=== PATIENT | female | born 1975 | race Caucasian/White ===

== ENCOUNTER 2020-04-04 10:49 | Inpatient (IN) | payer BC ==
[2020-04-04 13:09] VITALS: BMI 28.3
[2020-04-04] MEDS ORDERED: Senokot S 8.6-50 MG TAB PO PRN (15:24)
[2020-04-04] MEDS ORDERED: Acetaminophen 325 MG TAB PO PRN (15:24)
[2020-04-04] MEDS ORDERED: Ondansetron PF 4 MG/2 ML Vial IVP PRN (15:24)
[2020-04-04] MEDS ORDERED: Bisacodyl 5 MG TAB PO PRN (15:24)
--- NOTE | 2020-04-04 15:29 | PDOC.HHP ---
Hospitalist HPI - History of Present Illness left lung pain History of Present Illness: This is a 44 year old female with past medical history of prolactinoma, anxiety , hormonal imbalance, allergies who presented to the ER with left sided lung pain. The patient states that on Sunday night she had some heartburn and took some pepcid that night. She then began having a cough all night. Initially it was brown in color but then became more dry. When she woke up Sunday morning, her left side of her chest was hurting extensively and felt like a throbbing sensation. It would occasionally radiate to the other side, but no radiation to the jaw or arm. Her pain is worst with taking a deep breath. She denies shortness of breath on exertion. She has had pneumonia a few times in the past. She denied fever, chills, runny nose, sore throat. She denies sick contacts or recent travel history. ED Course: The patient had presented to a [facility] ER for initial evaluation. She was found to be have a BP of 98/56, temp 97.7, HR 70, oxygen saturation 97% on room air. Labs showed WBC of 8.3, platelet count 145, normal d-dimer. Potassium was 2.4. She was given IV fluids with improvement in her BP to 98/57. She was also given potassium supplementation 20 meq. COVID swab was sent which was pending Hospitalist ROS - Review of Systems Constitutional: denies: fever, chills ENT: denies: ear pain, ear discharge Respiratory: denies: cough, dry, shortness of breath Cardiovascular: reports: other (pleuritic chest pain) Gastrointestinal: denies: other Genitourinary: denies: dysuria, frequency, incontinence Musculoskeletal: denies: neck pain, shoulder pain Hospitalist History - Past Medical History Other Medical History: Anxiety - Past Surgical History Other Surgical History: Bariatric surgery Breast surgery Knee surgery - Family History Other Family History: No family history of pneumonia - Social History Smoking Status: Never smoker Alcohol: reports: Occassional Drugs: reports: none Living Situation: With Family - Exam General Appearance: NAD, awake alert Eye: PERRL, anicteric sclera ENT: normocephalic atraumatic, no oropharyngeal lesions Neck: supple, no JVD Heart: RRR, no murmur, no gallops, no rubs Respiratory - other findings: diminished breath sounds diffusely. Points to pain on right side of lung Gastrointestinal: soft, non-tender, non-distended, normal bowel sounds Extremities: no cyanosis, no clubbing, no edema Skin: normal turgor, no lesions, no rashes Neurological: cranial nerve grossly intact, normal sensation to touch, no focal deficits, no new deficit Musculoskeletal: normal tone, normal strength, no muscle wasting Psychiatric: normal affect, normal behavior, A&O x 3, oriented to person Hospitalist H&P A/P - Plan Plan: CTA chest: RML consolidation, infiltrate RUL and RLL This is a 44 year old female with anxiety, prolactinoma, presenting with possible pneumonia Community acquired pneumonia - was given levaquin and clindamycin at outside hospital - will give ceftriaxone today and order azithromycin for tomorrow. Check blood culture - check sputum culture - toradol prn for pain Thrombocytopenia - platelet count 145 , will recheck Anemia - noted to be 12 at ER, will recheck Prolactinoma - continue cabergoline Hypothyroidism - continue levothyroxine Chronic headaches - topamax DVT prophylaxis: Code status: full code
[2020-04-04] MEDS ORDERED: CABERGOLINE PO SCH (15:30)
[2020-04-04] MEDS: cefTRIAXone\\ROCEPHIN 1 GM in Sodium Chloride 0.9% 100 ML IVPB SCH (16:16)
[2020-04-04] MEDS: Ketorolac Tromethamine 30 MG/ML VIAL IVP PRN ×2 (16:17→21:51)
[2020-04-04 16:54] LABS: #Eosinphils 0.1 thou/uL (0.0-0.7); #Lymphocytes 1.1 thou/uL (1.20-3.40); #Monocytes 0.4 thou/uL (0.11-0.59); #Neutrophils 5.6 thou/uL (1.40-6.50); %Basophils 0.4 % (0.0-1.0); %Eosinophils 1.7 % (0.0-10.0); %Lymphocytes 15.1 % (21.0-51.0); %Monocytes 5.7 % (0.0-10.0); %Neutrophils 77.1 % (42.0-75.0); Hemoglobin 10.1 g/dL (12.0-16.0); Mean Corpuscular HGB CONC 33.9 g/dL (32.0-36.0); Mean Corpuscular Hemoglobin 32.6 pg (27.0-31.0); Mean Corpuscular Volume 96.2 fL (78.0-98.0); Mean Platelet Volume 8.6 fL (7.4-10.4); Platelet Count 128 thou/uL (130-400); RBC Distribution Width 11.6 % (11.5-14.5); White Blood Cell (WBC) Count 7.3 thou/uL (4.8-10.8)
[2020-04-04 17:13] LABS: ALT (SGPT) 10 U/L (8-55); AST (SGOT) 10 U/L (5-34); Albumin 3.1 g/dL (3.5-5.0); Alkaline Phosphatase 55 U/L (40-110); Anion Gap 9 mmol/L (10-20); BUN (Urea Nitrogen) 9 mg/dL (7.0-18.7); Bilirubin, Total 0.3 mg/dL (0.2-1.2); Calc. Creatinine Clearance 104 mL/min (70-130); Calcium 7.4 mg/dL (7.8-10.44); Carbon Dioxide 21 mmol/L (22-29); Chloride 112 mmol/L (98-107); Estimated GFR-MDRD 78; Globulin 2.2 g/dL (2.4-3.5); Glucose 128 mg/dL (70-105); Protein, Total 5.3 g/dL (6.0-8.3); Sodium 139 mmol/L (136-145)
[2020-04-04 17:15] LABS: Potassium 2.7 mmol/L (3.5-5.1)
--- NOTE | 2020-04-04 17:23 | RAD ---
CHEST ONE VIEW: History: Pleuritic chest pain. Comparison: None. FINDINGS: There is a right middle and right lower lobe airspace opacity. No pneumothorax. Left lung is clear. N o acute osseous abnormality. Cardiac silhouette and mediastinal contours are within normal limits. IMPRESSION: Findings of right middle and lower lobe pneumonia. Follow up after treatment recommended. POS: HOME
[2020-04-04] MEDS ORDERED: Potassium Chloride 20 MEQ TAB PO SCH (17:30)
[2020-04-04] MEDS: Atenolol 50 MG TAB PO SCH ×2 (20:24→21:03)
[2020-04-04] MEDS: Diazepam 5 MG TAB PO SCH (20:24)
[2020-04-04] MEDS: Famotidine/PF 20 mg/2ml Vial SLOW IVP SCH (20:24)
[2020-04-04] MEDS: Topiramate 100 MG TAB PO SCH (20:25)
[2020-04-04] MEDS: Progesterone,Micronized 100 MG CAP PO SCH (20:25)
[2020-04-04 22:09] LABS: Potassium 3.6 mmol/L (3.5-5.1)
[2020-04-04] MEDS ORDERED: traZODone HCl 50 MG TAB PO SCH (23:00)
[2020-04-05 05:15] LABS: Iron 25 ug/dL (50-170); Iron Binding Capacity, Total 249 mcg/dL (265-497)
[2020-04-05 05:16] LABS: Anion Gap 11 mmol/L (10-20); BUN (Urea Nitrogen) 6 mg/dL (7.0-18.7); Calc. Creatinine Clearance 108 mL/min (70-130); Carbon Dioxide 17 mmol/L (22-29); Chloride 114 mmol/L (98-107); Estimated GFR-MDRD 82; Glucose 104 mg/dL (70-105); Iron Binding Capacity, Total 246 mcg/dL (265-497); Potassium 3.4 mmol/L (3.5-5.1); Sodium 139 mmol/L (136-145); Transferrin, Serum 197 mg/dL (180-382)
[2020-04-05] MEDS: Azithromycin 500 MG in Sodium Chloride 0.9% 250 ML 250 ML IVPB SCH (05:28)
[2020-04-05] MEDS: Ketorolac Tromethamine 30 MG/ML VIAL IVP PRN ×3 (05:28→21:27)
[2020-04-05] MEDS: Levothyroxine Sodium 100 MCG TAB PO SCH (05:28)
[2020-04-05 05:41] LABS: Ferritin 188.86 ng/mL (10-291)
[2020-04-05 06:12] LABS: #Eosinphils 0.2 thou/uL (0.0-0.7); #Lymphocytes 1.2 thou/uL (1.20-3.40); #Monocytes 0.4 thou/uL (0.11-0.59); #Neutrophils 4.3 thou/uL (1.40-6.50); %Basophils 0.3 % (0.0-1.0); %Eosinophils 2.9 % (0.0-10.0); %Monocytes 6.8 % (0.0-10.0); Hemoglobin 9.6 g/dL (12.0-16.0); Mean Corpuscular Hemoglobin 32.5 pg (27.0-31.0); Mean Corpuscular Volume 95.6 fL (78.0-98.0); Mean Platelet Volume 8.4 fL (7.4-10.4); Platelet Count 139 thou/uL (130-400); RBC Distribution Width 11.3 % (11.5-14.5); Red Blood Cell (RBC) Count 2.94 mill/uL (4.20-5.40); White Blood Cell (WBC) Count 6.1 thou/uL (4.8-10.8)
[2020-04-05] MEDS: Enoxaparin Sodium 40 MG/0.4 ML SYRINGE SC SCH (09:24)
[2020-04-05] MEDS: Venlafaxine HCl XR 150 MG CAP PO SCH (09:24)
[2020-04-05] MEDS: Famotidine/PF 20 mg/2ml Vial SLOW IVP SCH ×2 (09:24→21:30)
[2020-04-05] MEDS: Montelukast Sodium 10 mg Tablet PO SCH (09:24)
[2020-04-05] MEDS: Atenolol 50 MG TAB PO SCH ×2 (10:56→21:30)
[2020-04-05] MEDS ORDERED: Lidocaine 5% Patch TD SCH (12:30)
[2020-04-05] MEDS: cefTRIAXone\\ROCEPHIN 1 GM in Sodium Chloride 0.9% 100 ML IVPB SCH (15:24)
[2020-04-05 16:52] LABS: SARS-CoV-2 MS2 Positive; SARS-CoV-2 N Gene Negative; SARS-CoV-2 S Gene Negative; SARS-CoV-2 orf1ab Negative
[2020-04-05] MEDS: Sodium Chloride 0.9% 1,000 ML IV SCH ×2 (17:25→21:27)
--- NOTE | 2020-04-05 18:42 | PDOC.HOSPP ---
- Subjective Encounter Date: 04/05/20 Encounter Time: 16:00 Subjective: The patient reports 50% improvement in her pain. She has no chest congestion, mild cough. She still says she feels weak however. BP was noted to be 88 systolic this afternoon - Objective Vital Signs & Weight: Vital Signs (12 hours) Temp Pulse Resp BP Pulse Ox 04/05/20 15:20 98.4 F 75 18 84/47 L 97 04/05/20 13:05 98.4 F 69 18 91/51 L 98 04/05/20 10:56 69 04/05/20 10:37 90/55 L 04/05/20 09:35 98.9 F 69 18 87/47 L 97 04/05/20 09:30 97 Weight Admit Weight 160 lb Weight 160 lb I&O: 04/04/20 04/05/20 04/06/20 06:59 06:59 06:59 Intake Total 500 Output Total 800 Balance -300 Result Diagrams: 04/05/20 05:56 04/05/20 04:40 Hospitalist ROS - Review of Systems Constitutional: denies: fever, chills - Medication Medications: Active Medications Generic Name Dose Route Start Last Admin Trade Name Freq PRN Reason Stop Dose Admin Atenolol 50 mg 04/04/20 21:00 04/05/20 10:56 Tenormin PO Not Given BID TIANA Diazepam 20 mg 04/04/20 21:00 04/04/20 20:24 Valium PO 20 mg HS TIANA Administration Enoxaparin Sodium 40 mg 04/05/20 09:00 04/05/20 09:24 Lovenox SC 40 mg 0900 TIANA Administration Famotidine 20 mg 04/04/20 21:00 04/05/20 09:24 Pepcid SLOW IVP 20 mg Q12HR TIANA Administration Ceftriaxone Sodium 1 gm/ 100 mls @ 200 mls/hr 04/04/20 16:00 04/05/20 15:24 Sodium Chloride IVPB 100 mls 1600 TIANA Administration Azithromycin 500 mg/ Sodium 250 mls @ 250 mls/hr 04/05/20 06:00 04/05/20 05: 28 Chloride IVPB 250 mls Q24HR TIANA Administration Sodium Chloride 1,000 mls @ 75 mls/hr 04/05/20 16:30 04/05/20 17:25 Normal Saline 0.9% IV 1,000 mls .[id number] TIANA Administration Ketorolac Tromethamine 30 mg 04/04/20 15:26 04/05/20 15:24 Toradol IVP 04/09/20 15:27 30 mg Q6H PRN Administration Pain Levothyroxine Sodium 100 mcg 04/05/20 06:00 04/05/20 05:28 Synthroid PO 100 mcg 0600 TIANA Administration Lidocaine 1 patch 04/05/20 12:30 04/05/20 13:04 Lidoderm 5% Patch TD 04/05/20 21:00 1 patch NOW TIANA Administration Montelukast Sodium 10 mg 04/05/20 09:00 04/05/20 09:24 Singulair PO 10 mg DAILY TIANA Administration Progesterone 200 mg 04/04/20 21:00 04/04/20 20:25 Prometrium PO 200 mg HS TIANA Administration Topiramate 100 mg 04/04/20 21:00 04/04/20 20:25 Topamax PO 100 mg HS TIANA Administration Venlafaxine HCl 150 mg 04/05/20 09:00 04/05/20 09:24 Effexor Xr PO 150 mg DAILY TIANA Administration - Exam General Appearance: NAD, awake alert Eye: PERRL, anicteric sclera ENT: normocephalic atraumatic, no oropharyngeal lesions Neck: no JVD Heart: RRR, no murmur, no gallops, no rubs Respiratory - other findings: mild rales right side Gastrointestinal: soft, non-tender, non-distended, normal bowel sounds Extremities: no cyanosis, no clubbing, no edema Skin: normal turgor, no lesions, no rashes Hosp A/P - Plan This is a 44 year old female with anxiety, prolactinoma, presenting with possible pneumonia Community acquired pneumonia - was given levaquin and clindamycin at outside hospital - continue ceftriaxone and azithromycin - blood cultures negative - check sputum culture - continue toradol prn for pain - continue physical therapy Mild hypotension - will start IV fluids Thrombocytopenia - resolved Anemia -stable Hyperprolactinemia - continue cabergoline Hypothyroidism - continue levothyroxine Chronic headaches - topamax
[2020-04-05] MEDS ORDERED: traZODone HCl 50 MG TAB PO SCH (21:00)
[2020-04-05] MEDS: Topiramate 100 MG TAB PO SCH (21:28)
[2020-04-05] MEDS: Diazepam 5 MG TAB PO SCH (21:28)
[2020-04-05] MEDS: Progesterone,Micronized 100 MG CAP PO SCH ×2 (21:29→22:15)
[2020-04-05] MEDS: Lidocaine Patch Removal 1 EACH TOP SCH ×2 (21:29→22:16)
[2020-04-06] MEDS: Ketorolac Tromethamine 30 MG/ML VIAL IVP PRN (04:42)
[2020-04-06 05:02] LABS: Hemoglobin 9.3 g/dL (12.0-16.0); Mean Corpuscular HGB CONC 33.8 g/dL (32.0-36.0); Mean Corpuscular Hemoglobin 32.8 pg (27.0-31.0); Mean Corpuscular Volume 97.1 fL (78.0-98.0); Mean Platelet Volume 8.5 fL (7.4-10.4); Platelet Count 127 thou/uL (130-400); RBC Distribution Width 11.4 % (11.5-14.5); Red Blood Cell (RBC) Count 2.84 mill/uL (4.20-5.40); White Blood Cell (WBC) Count 4.3 thou/uL (4.8-10.8)
[2020-04-06 05:21] LABS: Anion Gap 8 mmol/L (10-20); BUN (Urea Nitrogen) 5 mg/dL (7.0-18.7); Calc. Creatinine Clearance 119 mL/min (70-130); Calcium 7.9 mg/dL (7.8-10.44); Carbon Dioxide 21 mmol/L (22-29); Chloride 113 mmol/L (98-107); Estimated GFR-MDRD Greater than 90; Glucose 91 mg/dL (70-105); Potassium 3.4 mmol/L (3.5-5.1); Sodium 139 mmol/L (136-145)
[2020-04-06] MEDS: Azithromycin 500 MG in Sodium Chloride 0.9% 250 ML 250 ML IVPB SCH (06:38)
[2020-04-06] MEDS: Levothyroxine Sodium 100 MCG TAB PO SCH (06:38)
[2020-04-06 08:22] VITALS: BP 101/61; TEMP 98.4
[2020-04-06] MEDS ORDERED: Lidocaine 5% Patch TD SCH (09:00)
[2020-04-06] MEDS ORDERED: Potassium Chloride 20 MEQ TAB PO SCH (09:30)
[2020-04-06] MEDS: Enoxaparin Sodium 40 MG/0.4 ML SYRINGE SC SCH (09:31)
[2020-04-06] MEDS: Montelukast Sodium 10 mg Tablet PO SCH (09:32)
[2020-04-06] MEDS: Venlafaxine HCl XR 150 MG CAP PO SCH (09:32)
[2020-04-06] MEDS: Famotidine/PF 20 mg/2ml Vial SLOW IVP SCH (09:33)
[2020-04-06] MEDS: Atenolol 50 MG TAB PO SCH (09:33)
[2020-04-06] MEDS ORDERED: Diazepam 5 MG TAB PO SCH (10:15)
[2020-04-06] MEDS ORDERED: Cefdinir 300 MG CAP PO SCH (10:15)
--- NOTE | 2020-04-07 01:43 | DIS ---
DATE OF ADMISSION: 04/04/2020 DATE OF DISCHARGE: 04/06/2020 DISCHARGE DIAGNOSES: 1. Right community-acquired pneumonia. 2. Mild hypotension and generalized malaise. 3. Thrombocytopenia. 4. Anemia. 5. Leukopenia. 6. Hypokalemia. BRIEF HISTORY OF PRESENT ILLNESS: This is a 44-year-old female with a past medical history of hyperprolactinemia, ADD, anxiety, hypothyroidism, chronic headaches, who presented to the emergency room with right-sided chest pain that started two days prior to admission. The patient reported that her pain was worse with taking deep breath. She denied any fevers, chills, runny nose or sore throat. She went to [facility] and was found to have a blood pressure of 98/56. Her vitals were all unremarkable. She did have a low platelet count of 145, potassium of 2.4. She had COVID swab testing and was sent to our hospital for further evaluation. The patient did have a CTA done of her chest at outside hospital, which showed a right middle lobe consolidation and infiltrate in the right upper lobe and right lower lobe. However, no signs of pulmonary embolism. HOSPITAL COURSE: Community-acquired pneumonia/Generalized malaise/hypotension: The patient was given Levaquin and clindamycin at the outside hospital. The patient had still reported 7/10 pain upon arrival to our hospital, so her antibiotics were switched to ceftriaxone and azithromycin. Sputum culture was inadequate and indicated saliva culture. Blood cultures were normal. The patient reported significant improvement in her pain, however, still had some weakness. Her blood pressure had dropped to 84 systolic on the so she was hydrated with IV fluids.On the day of discharge, her blood pressure improved. She reported improvement in her cough and chest pain. She was discharged with cefdinir and azithromycin to complete a 7- day course of antibiotics. Her atenolol and lasix were discontinued on discharge. She was advised to follow up with PCP in a week and have repeat chest x-ray in 6 weeks. Thrombocytopenia: The patient's platelet count was 128 on the . It improved to 139, however, it dropped down again to 127 on the , likely secondary to dilutional effect of IV fluids. This can be repeated with her PCP. Leukopenia: The patient's white count is 4.3 on the day of discharge. This is likely dilutional effect from IV fluids. She had no fevers. This can be repeated as an outpatient. Anemia: The patient had hemoglobin of 9.3. She had vitamin B12 and folate checked, which were normal. Iron panel showed ferritin of 188 and low iron saturation of 10%. She was not discharged on any iron supplementation, but should have this monitored further with her PCP. DISCHARGE PHYSICAL EXAMINATION: VITAL SIGNS: Temperature 98.4, HR 75, respiratory rate 16, O2 saturation 99% on room air, and BP 101/61. GENERAL: The patient is alert, awake, and oriented x3. CVS: Regular rate and rhythm. No murmurs, rubs, or gallops. LUNGS: The patient has some right-sided crackles. ABDOMEN: Positive bowel sounds, soft, nontender, and nondistended. EXTREMITIES: No edema. PERTINENT LABORATORY DATA: CBC 04/06: White blood cell count 4.3, hemoglobin 9.3, hematocrit 27.6, and platelet count of 127. BMP 04/06: Shows a potassium of 3.4, chloride of 113, CO2 of 21, BUN 5, creatinine 0.7. Iron panel: Ferritin 188, iron sat 10, transferrin 197, TIBC 249, iron 25. Vitamin B12: 928. Folate: 9.20. IMAGING: Chest x-ray 04/04: Shows right middle and lower lobe pneumonia. DISCHARGE CONDITION: Stable. ACTIVITY: As tolerated. DIET: Regular diet. DISCHARGE MEDICATIONS: New prescriptions: 1. Cefdinir 300 mg p.o. q.12 hours. 2. Azithromycin 250 mg p.o. daily. Discontinued medications: 1. Lasix 2. Atenolol, which patient was taking for anxiety. All other home medications were resumed. Job ID: [id number] [id number]
== END 2020-04-06 11:32 | disposition home or self-care (01) | DRG 195 ==
LOC: 2NO 10:49 → 2SW 11:09 → 2SE 04-05 19:27
PROVIDERS: ADMIT Family Medicine; ATTEND Internal Medicine
DX: J18.9 Pneumonia, unspecified organism (principal); Z20.828 Contact with and (suspected) exposure to other viral communicable diseases; I95.9 Hypotension, unspecified; D64.9 Anemia, unspecified; E87.6 Hypokalemia; F98.8 Other specified behavioral and emotional disorders with onset usually occurring in childhood and adolescence; F41.9 Anxiety disorder, unspecified; E03.9 Hypothyroidism, unspecified; G44.89 Other headache syndrome; D69.59 Other secondary thrombocytopenia; T50.3X5A Adverse effect of electrolytic, caloric and water-balance agents, initial encounter; D70.2 Other drug-induced agranulocytosis; Z79.899 Other long term (current) drug therapy; D35.2 Benign neoplasm of pituitary gland
CPT/HCPCS: 36415; 71045; 80048; 80053; 82607; 82728; 82746; 83540; 83550; 84466; 85025; 85027; 87040; 87070; 87205; 87635; J0456; J0696; J1650; J1885; J3490; J7050; S0028; U0003